=== PATIENT | female | born 1990 | race Two or more races ===

== ENCOUNTER 2019-01-27 22:31 | Emergency (ER) | payer OTHER ==
[~2019-01-27] VITALS: Ht 167.6 cm; Wt 58.0 kg
[2019-01-27 22:38] VITALS: BP 110/61
== END 2019-01-28 01:18 | disposition home or self-care (01) ==
LOC: ED 23:38
DX: O03.1 Delayed or excessive hemorrhage following incomplete spontaneous abortion (principal); R55 Syncope and collapse
CPT/HCPCS: 36415; 76856; 80048; 82040; 84702; 85025; 86850; 86900; 93005; 96360; 99284; J7030